=== PATIENT | female | born 1975 | race Caucasian/White ===

== ENCOUNTER 2018-10-02 21:27 | Emergency (ER) | payer BC ==
[2018-10-02 21:44] VITALS: BP 135/60
--- NOTE | 2018-10-03 00:07 | ER Document Report ---
ED Medical Screen (RME) - General Chief Complaint: Leg Pain Stated Complaint: RIGHT THIGH PAIN Time Seen by Provider: 10/02/18 23:56 Primary Care Provider: JONNY ERIC [Primary Care Provider] - Follow up as needed Notes: Patient is a 43-year-old female with a past medical history of venous insufficiency who presents emergency department with right groin pain. She states that she feels the pain is in her right medial thigh. She states it is worse when she sits. She states that she feels like her right leg has a little bit of swelling than normal. Patient is currently on control. She said she took some ibuprofen to help with pain, which helped, but she continues to have pain. Exam: Tender right medial thigh. I have greeted and performed a rapid initial assessment of this patient. A comprehensive ED assessment and evaluation of the patient, analysis of test results and completion of medical decision making process will be conducted by an additional ED providers. - Related Data Allergies/Adverse Reactions: No Known Allergies Allergy (Unverified 02/15/11 16:29) Past Medical History Past Surgical History: Reports: Hx Abdominal Surgery - right hemicoloctomy - Immunizations Hx Diphtheria, Pertussis, Tetanus Vaccination: Yes - 2007 Physical Exam - Vital signs Vitals: Temp Pulse Resp BP Pulse Ox 98.6 F 72 18 135/60 H 100 10/02/18 21:43 10/02/18 21:43 10/02/18 21:43 10/02/18 21:43 10/02/18 21:43 Course - Vital Signs Vital signs: Temp Pulse Resp BP Pulse Ox 98.6 F 72 18 135/60 H 100 10/02/18 21:43 10/02/18 21:43 10/02/18 21:43 10/02/18 21:43 10/02/18 21:43 Doctor's Discharge - Discharge Referrals: JONNY ERIC [Primary Care Provider] - Follow up as needed
--- NOTE | 2018-10-03 00:41 | ER Document Report ---
ED Extremity Problem, Lower - General Chief Complaint: Leg Pain Stated Complaint: RIGHT THIGH PAIN Time Seen by Provider: 10/02/18 23:56 Primary Care Provider: JONNY ERIC [NO LIBBY MD] - Follow up as needed Notes: Patient is a 43-year-old female with a past medical history of venous insufficiency who presents emergency department with right groin pain. She states that she feels the pain is in her right groin and radiates down her medial thigh. She states it is worse when she sits. She states that she feels like her right leg has a little bit of swelling than normal. Patient is currently on control. She said she took some ibuprofen to help with pain, which helped, but she continues to have pain. She made an appointment with her vascular surgeon, but does not have a venous Doppler study for another 2 more weeks. Patient denies any shortness of breath, difficulty breathing, or any other symptoms at this time. Denies any smoking. Denies any long car trips. - Related Data Allergies/Adverse Reactions: No Known Allergies Allergy (Unverified 02/15/11 16:29) Past Medical History - General Information source: Patient - Social History Smoking Status: Never Smoker Frequency of alcohol use: Rare Drug Abuse: None Family History: Reviewed & Not Pertinent Patient has suicidal ideation: No Patient has homicidal ideation: No Renal/ Medical History: Denies: Hx Peritoneal Dialysis Past Surgical History: Reports: Hx Abdominal Surgery - right hemicoloctomy - Immunizations Hx Diphtheria, Pertussis, Tetanus Vaccination: Yes - 2007 Review of Systems - Review of Systems Notes: REVIEW OF SYSTEMS: CONSTITUTIONAL : Denies recent illness. Denies recent unintentional weight loss. Denies fever, chills, or sweats. EENT: Denies eye, ear, throat, or mouth pain, discharge, or symptoms. Denies nasal or sinus congestion. CARDIOVASCULAR: Denies chest pain. RESPIRATORY: Denies shortness of breath, cough, congestion, difficulty breathing, or wheezing. GASTROINTESTINAL: Denies nausea, vomiting, and diarrhea. Denies abdominal pain. Denies constipation. GENITOURINARY: Denies difficulty urinating, burning, blood in urine, urgency or frequency. MUSCULOSKELETAL: See HPI SKIN: Denies rash, itchiness, or lesions HEMATOLOGIC : Denies easy bruising or bleeding. LYMPHATIC: Denies swollen, painful, enlarged glands. NEUROLOGICAL: Denies no numbness or tingling denies weakness. Denies headache. Denies altered mental status. Denies alteration in speech. PSYCHIATRIC: Denies stress, anxiety, alteration in sleep patterns, or depression. All other systems reviewed and negative. Physical Exam - Vital signs Vitals: Temp Pulse Resp BP Pulse Ox 98.6 F 72 18 135/60 H 100 10/02/18 21:43 10/02/18 21:43 10/02/18 21:43 10/02/18 21:43 10/02/18 21:43 - Notes Notes: PHYSICAL EXAMINATION: GENERAL: Appears well, healthy, well-nourished, no acute distress. HEAD: Normocephalic, atraumatic. EYES: PERRL, conjunctiva normal, all extraocular movements intact, sclera nonicteric ENT: Moist mucous membranes. NECK: Supple, no noticeable swelling, redness, rash. Normal range of motion. LUNGS: Equal breath sounds bilaterally and clear to auscultation. No wheezes rales or rhonchi. CARDIOVASCULAR: S1-S2, regular rate, regular rhythm. Radial pulses 2+, normal. ABDOMEN: Normoactive bowel sounds. Soft, nontender, no guarding, no rebound tenderness, and no masses palpated. EXTREMITIES: Normal strength and range of motion, no pitting or edema. No cyanosis. NEUROLOGICAL: Moves all extremities upon command. Strength 5/5 in all extremities. PSYCH: Normal mood, normal affect. SKIN: Warm, dry. No rash, lesions, ulcerations noted. Normal skin turgor. Course - Re-evaluation Re-evalutation: I spoke with Dr. Ulises Blum in regards to this case. I asked what she would recommend for this patient and Dr. Blum recommends the patient have a venous Doppler study done outpatient in the morning. She is not recommending labs at this time. I spoke with the patient and asked her if she really felt like she could possibly have a DVT, and she said "no." I offered Lovenox for the patient and she refused at this time. She states that she would much rather have the venous Doppler done in the morning. An order for outpatient venous Doppler was given. I will follow-up with results tomorrow afternoon. Follow-up precautions were given. Verbal discharge instructions were given to the patient. They verbalized understanding. They are stable for discharge. - Vital Signs Vital signs: Temp Pulse Resp BP Pulse Ox 98.6 F 72 18 135/60 H 100 10/02/18 21:43 10/02/18 21:43 10/02/18 21:43 10/02/18 21:43 10/02/18 21:43 Discharge - Discharge Clinical Impression: Right leg pain Condition: Stable Disposition: HOME, SELF-CARE Additional Instructions: You are seen today in the emergency department for right leg pain. You are being sent for an ultrasound. Please follow-up with outpatient ultrasound here in the hospital tomorrow morning. Your results will be given to you by 1 of the providers here in the emergency department or I will give you a call tomorrow afternoon. Forms: Follow-Up Radiology Testing Referrals: LOCALMD,NO [NO LOCAL MD] - Follow up as needed
== END 2018-10-03 00:35 | disposition home or self-care (01) ==
LOC: ER 21:27
DX: M79.651 Pain in right thigh (principal); R10.30 Lower abdominal pain, unspecified; Z79.3 Long term (current) use of hormonal contraceptives
CPT/HCPCS: 99283

== ENCOUNTER 2018-10-03 05:52 | Emergency (ER) | payer BC ==
[2018-10-03] MEDS ORDERED: KETOROLAC TROMETHAMINE INJ/PF 30 MG/1 ML SDV IV ONE (06:53)
--- NOTE | 2018-10-03 06:55 | ER Document Report ---
ED Extremity Problem, Lower - General Chief Complaint: Leg Pain Stated Complaint: LEG PAIN Time Seen by Provider: 10/03/18 06:37 Primary Care Provider: GAURAV ARTIS MD [Primary Care Provider] - Follow up as needed TRAVEL OUTSIDE OF THE [place] IN LAST 30 DAYS: No - HPI Notes: Patient presents with roughly 4 days of right lower extremity pain. It has been intermittent but gradually coming more constant. It starts in the right inguinal area and radiates down the right leg. It is severe. It is worse with movement and better with reclining. She states she does have a history of some venous insufficiency with some procedures on the right venous system. No recent trauma. She does take control pills. She does not smoke. No previous history of DVT. No trauma to the right leg. No abdominal pain. - Related Data Allergies/Adverse Reactions: No Known Allergies Allergy (Unverified 02/15/11 16:29) Past Medical History - General Information source: Patient - Social History Smoking Status: Never Smoker Frequency of alcohol use: None Drug Abuse: None Family History: Reviewed & Not Pertinent Renal/ Medical History: Denies: Hx Peritoneal Dialysis Past Surgical History: Reports: Hx Abdominal Surgery - right hemicoloctomy - Immunizations Hx Diphtheria, Pertussis, Tetanus Vaccination: Yes - 2007 Review of Systems - Review of Systems Constitutional: denies: Chills, Fever Cardiovascular: denies: Chest pain, Dyspnea Respiratory: denies: Cough, Short of breath -: Yes All other systems reviewed and negative Physical Exam - Vital signs Vitals: Temp Pulse Resp BP Pulse Ox 97.4 F 78 18 125/59 L 100 10/03/18 06:04 10/03/18 06:04 10/03/18 06:04 10/03/18 06:04 10/03/18 06:04 Interpretation: Normal - General General appearance: Appears well, Alert - HEENT Head: Normocephalic, Atraumatic Eyes: Normal Pupils: PERRL - Respiratory Respiratory status: No respiratory distress Chest status: Nontender Breath sounds: Normal Chest palpation: Normal - Cardiovascular Rhythm: Regular Heart sounds: Normal auscultation Murmur: No - Abdominal Inspection: Normal Distension: No distension Bowel sounds: Normal Tenderness: Nontender Organomegaly: No organomegaly - Back Back: Normal, Nontender - Extremities General upper extremity: Normal inspection, Nontender, Normal color, Normal ROM, Normal temperature General lower extremity: Other - Left lower extremity is unremarkable. Right lower extremity does appear to be slightly more swollen than the left. The right leg does not feel hot however. There is some mild erythema of the right lower extremity mainly above the knee. She has equal 2+ posterior tibial pulses. Dorsalis pedis cannot be palpated on either side but she states this is normal. She has normal temperature and color of both legs. She can flex and extend all toes on both lower externally's.. No: Marin's sign - Neurological Neuro grossly intact: Yes Cognition: Normal Orientation: AAOx4 Que Coma Scale Eye Opening: Spontaneous Bryson Coma Scale Verbal: Oriented Bryson Coma Scale Motor: Obeys Commands Bryson Coma Scale Total: 15 Speech: Normal Motor strength normal: LUE, RUE, LLE, RLE Sensory: Normal - Psychological Associated symptoms: Normal affect, Normal mood - Skin Skin Temperature: Warm Skin Moisture: Dry Skin Color: Normal Course - Re-evaluation Re-evalutation: 10/03/18 13:11 Patient reassessed. She is smiling and resting comfortably in the room. Vital signs are unremarkable. Laboratories are also unremarkable. She had a negative Doppler for DVT. CTs of the abdomen and right femur/hip are also unremarkable for any acute abnormality other than varicosities. I believe patient will be best served outpatient follow-up with her vascular surgeon. - Vital Signs Vital signs: Temp Pulse Resp BP Pulse Ox 97.4 F 78 18 125/59 L 100 10/03/18 06:04 10/03/18 06:04 10/03/18 06:04 10/03/18 06:04 10/03/18 06:04 - Laboratory Result Diagrams: 10/03/18 07:46 10/03/18 07:46 Laboratory results interpreted by me: 10/03/18 10/03/18 07:46 07:46 Hgb 11.9 L Hct 35.2 L Sodium 136.9 L - Diagnostic Test Radiology reviewed: Image reviewed, Reports reviewed Radiology results interpreted by me: 10/03/18 13:12 Venous Doppler Study 10/03/18 06:53 IMPRESSION: NO EVIDENCE OF DVT OR SVT IN THE RIGHT LEG. Lower Extremity CT 10/03/18 08:47 IMPRESSION: 1. No evidence of acute bony abnormality. 2. Prominent upper thigh and labial varicosities which may be seen pelvic venous insufficiency. Borderline enlarged right inguinal node versus varico sity. Abdomen/Pelvis CT 10/03/18 08:51 IMPRESSION: 1. No evidence of acute intra-abdominal/ pelvic process. 2. Evidence of prior appendectomy. 3. 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 Discharge - Discharge Clinical Impression: Right leg pain Condition: Stable Disposition: HOME, SELF-CARE Instructions: Leg Cramps ([facility]) Additional Instructions: Please call your vascular surgeon to arrange follow-up. Prescriptions: Tramadol HCl [Ultram] 50 mg PO Q6 PRN 3 Days #12 tablet PRN Reason: Referrals: GAURAV ARTIS MD [Primary Care Provider] - Follow up as needed
[2018-10-03 07:56] LABS: ABSOLUTE BASOPHILS # (AUTO) 0.1 10^3/uL (0.0-0.2); ABSOLUTE EOSINOPHILS # (AUTO) 0.1 10^3/uL (0.0-0.6); ABSOLUTE LYMPHOCYTES (AUTO) 1.7 10^3/uL (0.5-4.7); ABSOLUTE MONOCYTES (AUTO) 0.6 10^3/uL (0.1-1.4); ABSOLUTE NEUT (AUTO) 5.9 10^3/uL (1.7-8.2); BASOPHILS % (AUTO) 0.7 % (0-2); HEMATOCRIT 35.2 % (36.0-47.0); HEMOGLOBIN 11.9 g/dL (12.0-15.5); LYMPHOCYTES % (AUTO) 20.6 % (13-45); MEAN CORPUSCULAR HEMOGLOBIN 30.4 pg (27.0-33.4); MEAN CORPUSCULAR HGB CONC 33.9 g/dL (32.0-36.0); MEAN CORPUSCULAR VOLUME 90 fl (80-97); MONOCYTES % (AUTO) 7.6 % (3-13); PLATELET COUNT 183 10^3/uL (150-450); RED BLOOD COUNT 3.92 10^6/uL (3.72-5.28); RED CELL DISTRIBUTION WIDTH 12.7 % (11.5-14.0); SEGMENTED NEUTROPHILS % (AUTO) 70.1 % (42-78); TOTAL CELLS COUNTED % (AUTO) 100 %; WHITE BLOOD COUNT 8.4 10^3/uL (4.0-10.5)
[2018-10-03 08:14] LABS: ALBUMIN 3.8 g/dL (3.5-5.0); ALKALINE PHOSPHATASE 40 U/L (38-126); ANION GAP 8 (5-19); ASPARTATE AMINO TRANSFERASE 20 U/L (14-36); BILIRUBIN,DIRECT 0.1 mg/dL (0.0-0.4); BILIRUBIN,TOTAL 0.5 mg/dL (0.2-1.3); BLOOD UREA NITROGEN 16 mg/dL (7-20); CALCIUM 8.8 mg/dL (8.4-10.2); CARBON DIOXIDE 25 mmol/L (22-30); CHLORIDE 104 mmol/L (98-107); GLUCOSE 87 mg/dL (75-110); TOTAL PROTEIN 6.5 g/dL (6.3-8.2)
--- NOTE | 2018-10-03 09:40 | RADIOLOGY REPORT (SQ) ---
EXAM DESCRIPTION: VENOUS UNILATERAL LOWER COMPLETED DATE/TIME: 10/03/2018 9:26 am REASON FOR STUDY: right LE pain/swelling COMPARISON: None. TECHNIQUE: Dynamic and static oquendo scale and color images acquired of the right leg venous system. S elected spectral images acquired with additional compression and augmentation maneuvers. The contrala teral common femoral vein and saphenofemoral junction were also imaged. Images stored on PACS. LIMITATIONS: None. FINDINGS: COMMON FEMORAL: Normal phasicity, compression and augmentation. No visualized echogenic ma terial on oquendo scale. No defects on color images. FEMORAL: Normal compression and augmentation. No visualized echogenic material on oquendo scale. No defe cts on color images. POPLITEAL: Normal compression, augmentation. No visualized echogenic material on oquendo scale. No defec ts on color images. CALF VESSELS: Normal compression, augmentation. No visualized echogenic material on oquendo scale. No de fects on color images. GSV and SSV: Normal compression, augmentation. No visualized echogenic material on oquendo scale. No def ects on color images. ANY DEEP VENOUS INSUFFICIENCY: Not evaluated. ANY EVIDENCE OF POPLITEAL CYST: No. OTHER: No other significant finding. CONTRALATERAL COMMON FEMORAL VEIN AND SAPHENOFEMORAL JUNCTION: Normal phasicity, compression and augmentation. No visualized echogenic material on oquendo scale. No de fects on color images. IMPRESSION: NO EVIDENCE OF DVT OR SVT IN THE RIGHT LEG. TECHNICAL DOCUMENTATION: JOB ID: [id number] [employer]- All Rights Reserved Reading location - IP/workstation name: [email or web address]
[2018-10-03 09:55] LABS: APPEARANCE,URINE SLIGHTLY-CLOUDY; BILIRUBIN,URINE NEGATIVE (NEGATIVE); COLOR,URINE YELLOW; GLUCOSE, URINE NEGATIVE (NEGATIVE); KETONES,URINE NEGATIVE (NEGATIVE); LEUKOCYTE ESTERASE,URINE NEGATIVE (NEGATIVE); NITRITE,URINE NEGATIVE (NEGATIVE); PROTEIN,URINE NEGATIVE (NEGATIVE); URINE SPECIFIC GRAVITY 1.017; UROBILINOGEN,URINE NEGATIVE mg/dL (<2.0)
--- NOTE | 2018-10-03 10:37 | RADIOLOGY REPORT (SQ) ---
EXAM DESCRIPTION: CT ABD/PELVIS NO ORAL OR IV COMPLETED DATE/TIME: 10/03/2018 10:05 am REASON FOR STUDY: rlq pain COMPARISON: None. TECHNIQUE: CT scan of the abdomen and pelvis performed without intravenous or oral contrast. Images reviewed with lung, soft tissue, and bone windows. Reconstructed coronal and sagittal MPR images revi ewed. All images stored on PACS. All CT scanners at this facility use dose modulation, iterative reconstruction, and/or weight based d osing when appropriate to reduce radiation dose to as low as reasonably achievable (ALARA). [facility]: Dose Right [facility]: CareDose [facility]: Dose Right [facility]: Teradose 4D [facility]: [employer] RADIATION DOSE: CT Rad equipment meets quality standard of care and radiation dose reduction techniq ues were employed. CTDIvol: 3.4 mGy. DLP: 184 mGy-cm.mGy. LIMITATIONS: None. FINDINGS: LOWER CHEST: No significant findings. No nodules or infiltrates. NON-CONTRASTED LIVER, SPLEEN, ADRENALS: Evaluation limited by lack of IV contrast. No identified sign ificant masses. PANCREAS: No masses. No peripancreatic inflammatory changes. GALLBLADDER: No identified stones by CT criteria. No inflammatory changes to suggest cholecystitis. RIGHT KIDNEY AND URETER: No suspicious masses. Assessment limited by lack of IV contrast. No signif icant calcifications. No hydronephrosis or hydroureter. LEFT KIDNEY AND URETER: No suspicious masses. Assessment limited by lack of IV contrast. No signifi cant calcifications. No hydronephrosis or hydroureter. AORTA AND RETROPERITONEUM: No aneurysm. No retroperitoneal mass or adenopathy. Metallic densities a long the left psoas, likely from prior gonadal vein embolization. BOWEL AND PERITONEAL CAVITY: No evidence of intestinal obstruction. No focal bowel wall thickening. Chain staple line within the right hemipelvis. APPENDIX: Surgically absent. PELVIS, BLADDER, AND ABDOMINAL WALL:No abnormal masses. No free fluid. Bladder normal. Likely inguin al and labial varicosities. BONES: No significant findings. OTHER: No other significant finding. IMPRESSION: 1. No evidence of acute intra-abdominal/ pelvic process. 2. Evidence of prior appendectomy. 3. 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 COMMENT: Quality ID # [id number]: Final reports with documentation of one or more dose reduction techniques (e.g., Automated exposure control, adjustment of the mA and/or kV according to patient size, use of iterative reconstruction technique) TECHNICAL DOCUMENTATION: JOB ID: [id number] [employer]- All Rights Reserved Reading location - IP/workstation name: [email or web address]
--- NOTE | 2018-10-03 12:58 | RADIOLOGY REPORT (SQ) ---
EXAM DESCRIPTION: CT RT LOWER EXTREMITY WITH COMPLETED DATE/TIME: 10/03/2018 10:14 am REASON FOR STUDY: right hip pain COMPARISON: Same day CT TECHNIQUE: CT scan of the right hip performed without intravenous or oral contrast. Images reviewed with soft tissue and bone windows. Reconstructed coronal and sagittal MPR images reviewed. All brice ges stored on PACS. All CT scanners at this facility use dose modulation, iterative reconstruction, and/or weight based d osing when appropriate to reduce radiation dose to as low as reasonably achievable (ALARA). [facility]: Dose Right [facility]: CareDose [facility]: Dose Right [facility]: Teradose 4D [facility]: [employer] RADIATION DOSE: CT Rad equipment meets quality standard of care and radiation dose reduction techniq ues were employed. CTDIvol: 6.1 mGy. DLP: 375 mGy-cm. mGy. LIMITATIONS: None. FINDINGS: PELVIC BONES: No acute fracture. No worrisome bone lesions. VISUALIZED SPINE: No acute findings. SYMPTOMATIC HIP: No acute fracture or dislocation. No worrisome bone lesions. OPPOSITE HIP: Not imaged. SOFT TISSUES: There are prominent upper thigh on labial varicosities. Borderline enlarged right ingu inal node versus varicosity measuring up to 13 mm. OTHER: No other significant finding. IMPRESSION: 1. No evidence of acute bony abnormality. 2. Prominent upper thigh and labial varicosities which may be seen pelvic venous insufficiency. Bor derline enlarged right inguinal node versus varicosity. TECHNICAL DOCUMENTATION: JOB ID: [id number] Quality ID # [id number]: Final reports with documentation of one or more dose reduction techniques (e.g., Au tomated exposure control, adjustment of the mA and/or kV according to patient size, use of iterative reconstruction technique) 2010 [employer]- All Rights Reserved Reading location - IP/workstation name: [email or web address]
[2018-10-03 13:34] VITALS: BP 112/59
== END 2018-10-03 13:33 | disposition home or self-care (01) ==
LOC: ER 05:52
DX: I83.811 Varicose veins of right lower extremity with pain (principal); I86.3 Vulval varices; Z79.3 Long term (current) use of hormonal contraceptives
CPT/HCPCS: 36415; 85025; 80053; 81001; 93971; 74176; 73701; J1885; 96374; 99284

== ENCOUNTER → 2020-02-12 | Outpatient (CLI) | payer BC ==
[~2020-02-12] MED LIST: COVID-19 VACCINE (PFIZER)/PF 30 MCG/0.3 ML VIAL IM ONE; EPINEPHRINE INJ/PF 1 MG/1 ML AMPULE IM PRN
== END ==
LOC: EMPHEALTH 08:25
PROVIDERS: ATTEND Internal Medicine
DX: Z23 Encounter for immunization (principal)
CPT/HCPCS: 91300

== ENCOUNTER → 2020-03-04 | Outpatient (CLI) | payer BC | LOC: EMPHEALTH 08:14 | PROVIDERS: ATTEND Internal Medicine | DX: Z23 Encounter for immunization (principal) | CPT/HCPCS: 91300 ==